=== PATIENT | male | born 1985 | race African-American/Black ===

== ENCOUNTER 2021-09-03 14:41 | Emergency (ER) | payer SELFPAY ==
[2021-09-03 14:52] VITALS: BP 148/101; PULSE 78; TEMP 98.5; BMI 39.0
[2021-09-03] MEDS ORDERED: guaiFENesin/CODEINE 10 ML UNIT-DOSE CUPS PO ONE (15:51)
[2021-09-03] MEDS ORDERED: DEXAMETHASONE 4 MG TABLET (FP) PO ONE (16:00)
[2021-09-03] MEDS ORDERED: DEXAMETHASONE SOD PHOSPHATE 4 MG/1 ML VIAL ONE (16:21)
[2021-09-03] MEDS ORDERED: guaiFENesin/CODEINE 5 ML UNIT-DOSE CUPS PO ONE (16:21)
== END 2021-09-03 17:00 | disposition home or self-care (01) ==
LOC: JER 14:41
DX: R05.1 Acute cough (principal); M25.531 Pain in right wrist; M25.532 Pain in left wrist
CPT/HCPCS: 71046-TC-FY; 99283-25; C9803; U0003; U0005